=== PATIENT | male | born 1985 | race Hispanic/Latino ===

== ENCOUNTER 2022-05-10 19:22 | Emergency (ER) | payer BC ==
[~2022-05-10] VITALS: Ht 160 cm; Wt 78.5 kg
[2022-05-10] MEDS ORDERED: AZITHROMYCIN250 MG PO (21:18)
[2022-05-10] MEDS ORDERED: VENTOLIN HFA18 GM INH (21:18)
[2022-05-10] MEDS ORDERED: PREDNISONE20 MG PO (21:18)
== END 2022-05-10 20:45 | disposition home or self-care (01) ==
LOC: ER 20:24
DX: R50.9 Fever, unspecified (principal); U07.1 COVID-19; J02.9 Acute pharyngitis, unspecified
CPT/HCPCS: 71045; 83518; 87070; 99283; U0002

== ENCOUNTER 2022-05-14 05:39 | Emergency (ER) | payer BC, OTHER ==
[~2022-05-14] VITALS: Ht 160 cm; Wt 78.5 kg
[~2022-05-14 05:39] MED LIST: AZITHROMYCIN250 MG PO; PREDNISONE20 MG PO; VENTOLIN HFA18 GM INH
[2022-05-14] MEDS ORDERED: PERMETHRIN60 GM TOP (06:30)
[2022-05-14] MEDS ORDERED: ZYRTEC10 MG PO (06:30)
== END 2022-05-14 06:45 | disposition home or self-care (01) ==
LOC: ER 05:49
DX: S40.862A Insect bite (nonvenomous) of left upper arm, initial encounter (principal); S40.861A Insect bite (nonvenomous) of right upper arm, initial encounter; S20.462A Insect bite (nonvenomous) of left back wall of thorax, initial encounter; S20.461A Insect bite (nonvenomous) of right back wall of thorax, initial encounter; Y92.59 Other trade areas as the place of occurrence of the external cause
CPT/HCPCS: 99282

== ENCOUNTER 2023-02-25 20:29 | Emergency (ER) | payer BC ==
[~2023-02-25] VITALS: Ht 160 cm; Wt 78.5 kg
[~2023-02-25 20:29] MED LIST changes: +PERMETHRIN60 GM TOP; +ZYRTEC10 MG PO
[2023-02-25 21:12] VITALS: O2SAT 100
[2023-02-25] MEDS ORDERED: ACETAMINOPHEN 325 MG TAB PO ONE (21:30)
[2023-02-25] MEDS ORDERED: KETOROLAC TROMETHAMINE 60 MG/2 ML VIAL IM ONE (21:30)
== END 2023-02-25 22:20 | disposition home or self-care (01) ==
LOC: ER 20:40
DX: M25.531 Pain in right wrist (principal)
CPT/HCPCS: 73110; 99283; J1885

== ENCOUNTER 2024-08-18 15:27 | Emergency (ER) | payer BC ==
[~2024-08-18] VITALS: Ht 160 cm; Wt 78.5 kg
[2024-08-18] MEDS: CYCLOBENZAPRINE HCL 10 MG TAB PO ONE (17:34)
[2024-08-18] MEDS: KETOROLAC TROMETHAMINE 60 MG/2 ML VIAL IM ONE (17:35)
[2024-08-18] MEDS: ACETAMINOPHEN 325 MG TAB PO ONE (17:35)
[2024-08-18 18:18] VITALS: PULSE 69; RESP 16; TEMP 97.9; O2SAT 98
[2024-08-18] MEDS ORDERED: METHOCARBAMOL750 MG PO (19:00)
[2024-08-18] MEDS ORDERED: KETOROLAC TROME10 MG PO (19:00)
== END 2024-08-18 19:05 | disposition home or self-care (01) ==
LOC: FSED 15:30
DX: M54.6 Pain in thoracic spine (principal); M54.50 Low back pain, unspecified; R51.9 Headache, unspecified
CPT/HCPCS: 72070; 72100; 81003; 96372; 99283; J1885